=== PATIENT | male | born 1935 | race Caucasian/White ===

== ENCOUNTER 2017-03-23 09:26 | Emergency (ER) | payer OTHER ==
[2017-03-23] MEDS ORDERED: LET GEL TOPICAL 1 EA SYR TP ONE (09:32)
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
[2017-03-23] MEDS ORDERED: TDAP ADULT 0.5 ML INJ (BOOSTRIX) IM ONE (09:37)
[2017-03-23 09:38] VITALS: RESP 16; TEMP 98.1; O2SAT 98
[2017-03-23 10:40] VITALS: BP 159/69; PULSE 65
== END 2017-03-23 10:40 | disposition home or self-care (01) ==
LOC: EDUNIT#
DX: S51.812A Laceration without foreign body of left forearm, initial encounter (principal); S70.01XA Contusion of right hip, initial encounter; V13.0XXA Pedal cycle driver injured in collision with car, pick-up truck or van in nontraffic accident, initial encounter; Y92.410 Unspecified street and highway as the place of occurrence of the external cause; Y99.8 Other external cause status; Y93.55 Activity, bike riding; I10 Essential (primary) hypertension

== ENCOUNTER 2017-03-27 08:48 | Observation (INO) | payer OTHER ==
--- NOTE | 2017-03-27 08:52 | EDPHY ---
HPI/HX/ROS/PE/MDM Narrative: CHIEF COMPLAINT: Bradycardia, nausea, diarrhea HISTORY OF PRESENT ILLNESS: This patient is an 81 year old male arriving via EMS complaining of nausea, diarrhea, and dizziness onset last night. Per EMS report, he was bradycardic in transport with heart rate in the high 20s and low 30s with good blood pressure. EMS reports complete heart block on their EKG. The patient felt well yesterday, and went shopping at [employer] yesterday evening and ate several samples. Later in the evening, he began to feel very nauseous and had multiple episodes of diarrhea throughout the night. He had two episodes of dizziness and weakness associated with a "pressure" sensation from his lower abdomen to his head and some tinnitus. He did have a brief episode of syncope for about 5 seconds, witnessed by his . He did not fall or strike his head. He took his blood pressures, and noted it was 77/33 and called EMS. He did not vomit spontaneously, but did induce vomiting with his finger. He denies any blood in his stool. He does take Diltiazem and Losartan, and states he is diligent with his medications and did not take too much of these medications. No fever, chills, chest pain, shortness of breath, palpitations, urinary complaints. REVIEW OF SYSTEMS: Aside from elements discussed in the HPI, a comprehensive 10-point review of systems was reviewed and is negative. PAST MEDICAL HISTORY: Cardiac stents. 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 VITAL SIGNS: Reviewed by me. HR 30 142/30 GENERAL: Well-developed, well-nourished, alert, conversant. HEENT: Atraumatic. Eyes: No icterus, no injection. Mouth: moist mucous membranes. No erythema or lesions. Neck: supple with no adenopathy. LUNGS: Clear to auscultation bilaterally, no wheezes, rhonchi or rales. CARDIAC: Extreme bradycardia, no rubs, murmurs or gallops. ABDOMEN: Soft, nontender, nondistended, bowel sounds normal. BACK: No CVA tenderness. EXTREMITIES: No trauma. No edema. Range of motion is normal throughout. NEURO: Alert and oriented, grossly nonfocal. SKIN: slightly diaphoretic, , no rash. PSYCHIATRIC: Normal mentation, no agitation. ED Course: 08:50 Met EMS at bedside. EKG shows wide QRS, right bundle branch block, complete heart block. 1mg IV Atropine administered. Pacer pads placed. Plan for I-stat, cardiology consult. Plan for labs including CBC, BMP, Troponin , Lipase. The patient remains bradycardic. 09:31 Consulted with Jennifer Melvin with [facility]. Cardiology will consult. 09:41 Dr. Morales, apprentice lineman third step, at bedside. He accepts admission for this patient. Plans to place pacemaker. Patient taken urgently to lab pack chemist for pacemaker placement. MDM: Critical care time spent by me, Dr. Tellez, exclusively with this patient was 35 minutes, exclusive of PA time and exclusive of procedures. The organ system at risk was cardiac and I gave atropine, placed pacer pads, consulted cardiology , performed EKG interpretation, and facilitated urgent pacemaker placement. Diff dx considered included bradycardia, mobitz type 2 heart block, complete heart block, arrhythmias, drug overdose, medication effects. - Data Points Laboratory Results: Laboratory Results 03/27/17 08:58 03/27/17 08:58 03/27/17 03/27/17 03/27/17 08:58 08:58 08:58 WBC 9.77 10^3/uL H 10^3/uL (3.80-9.50) RBC 4.40 10^6/uL 10^6/uL (4.40-6.38) Hgb 14.4 g/dL g/dL (13.7-17.5) POC Hgb 14.3 gm/dL gm/dL (13.7-17.5) Hct 42.9 % % (40.0-51.0) POC Hct 42 % % (40-51) MCV 97.5 fL fL (81.5-99.8) MCH 32.7 pg pg (27.9-34.1) MCHC 33.6 g/dL g/dL (32.4-36.7) RDW 13.0 % % (11.5-15.2) Plt Count 155 10^3/uL 10^3/uL (150-400) MPV 10.0 fL fL (8.7-11.7) Neut % (Auto) 83.9 % H % (39.3-74.2) Lymph % (Auto) 11.1 % L % (15.0-45.0) Blanco % (Auto) 3.9 % L % (4.5-13.0) Eos % (Auto) 0.4 % L % (0.6-7.6) Baso % (Auto) 0.4 % % (0.3-1.7) Nucleat RBC Rel Count 0.0 % % (0.0-0.2) Absolute Neuts (auto) 8.20 10^3/uL H 10^3/uL (1.70-6.50) Absolute Lymphs (auto) 1.08 10^3/uL 10^3/uL (1.00-3.00) Absolute Monos (auto) 0.38 10^3/uL 10^3/uL (0.30-0.80) Absolute Eos (auto) 0.04 10^3/uL 10^3/uL (0.03-0.40) Absolute Basos (auto) 0.04 10^3/uL 10^3/uL (0.02-0.10) Absolute Nucleated RBC 0.00 10^3/uL 10^3/uL (0-0.01) Immature Gran % 0.3 % % (0.0-1.1) Immature Gran # 0.03 10^3/uL 10^3/uL (0.00-0.10) POC Sodium 139 mEq/L mEq/L (134-144) Sodium 137 mEq/L mEq/L (134-144) POC Potassium 4.1 mEq/L mEq/L (3.3-5.0) Potassium 4.6 mEq/L mEq/L (3.5-5.2) POC Chloride 103 mEq/L mEq/L (97-110) Chloride 101 mEq/L mEq/L (97-110) Carbon Dioxide 22 mEq/l mEq/l (22-31) Anion Gap 14 mEq/L mEq/L (8-16) POC BUN 43 mg/dL H mg/dL (7-23) BUN 48 mg/dL H mg/dL (7-23) Creatinine 1.9 mg/dL H mg/dL (0.7-1.3) POC Creatinine 1.9 mg/dL H mg/dL (0.7-1.3) Estimated GFR 34 Glucose 212 mg/dL H mg/dL (70-100) POC Glucose 216 mg/dL H mg/dL (70-100) Calcium 10.1 mg/dL mg/dL (8.5-10.4) Troponin I < 0.012 ng/mL ng/mL (0.000-0.034) Lipase 143 IU/L IU/L (23-300) Medications Given: Discontinued Medications Atropine Sulfate (Atropine 1 Mg/10 Ml Syringe) 1 mg IVP EDNOW ONE Stop: 03/27/17 08:57 Last Admin: 03/27/17 08:57 Dose: 1 mg Bacitracin (Bacitracin 1000 Ml Irrigation) 50,000 units IRR ONCALL ONE Stop: 03/27/17 10:13 Last Admin: 03/27/17 13:23 Dose: Not Given Diazepam (Valium) 5 mg PO ONCALL ONE Stop: 03/27/17 10:13 Last Admin: 03/27/17 13:28 Dose: Not Given Diphenhydramine HCl (Benadryl) 25 mg PO ONCALL ONE Stop: 03/27/17 10:13 Last Admin: 03/27/17 13:28 Dose: Not Given Sodium Chloride (Ns) 1,000 mls @ 0 mls/hr IV ONCALL ONE PRN Reason: As Directed Stop: 03/27/17 10:13 Last Admin: 03/27/17 13:28 Dose: Not Given Cefazolin Sodium/Dextrose (Ancef 2 Gm (Premix)) 100 mls @ 200 mls/hr IV ONCALL ONE PRN Reason: Protocol Stop: 03/27/17 11:10 Last Admin: 03/27/17 13:23 Dose: Not Given Point of Care Test Results: 03/27/17 08:58 POC Sodium 139 POC Potassium 4.1 POC Chloride 103 POC BUN 43 H POC Creatinine 1.9 H POC Glucose 216 H General Initial Vital Signs: Initial Vital Signs Temperature (C) 37 C 03/27/17 08:48 Heart Rate 30 L 03/27/17 08:48 Respiratory Rate 14 03/27/17 08:48 Blood Pressure 142/40 H 03/27/17 08:48 O2 Sat (%) 98 03/27/17 08:48 O2 Delivery Mode Room Air Allergies/Adverse Reactions: No Known Allergies Allergy (Verified 03/27/17 09:02) Home Medications: Medication Instructions Recorded Aspirin [Aspirin 81mg (*)] 81 mg PO DAILY 03/27/17 Atorvastatin Calcium [Lipitor 10 10 mg PO DAILY 03/27/17 mg (*)] Finasteride [Proscar 5 MG (*)] 5 mg PO Q2D 03/27/17 Losartan/Hydrochlorothiazide 1 each PO DAILY 03/27/17 [Losartan-Hctz 100-25 mg Tab] Tamsulosin HCl [Flomax 0.4 MG (*)] 0.8 mg PO HS 03/27/17 Zolpidem Tartrate [Ambien 10 mg] 10 mg PO HS PRN 03/27/17 Departure - Departure Disposition: [facility] Inpatient Acute Clinical Impression: Bradycardia, Complete heart block by electrocardiogram Condition: Serious Report Scribed for: Eliza Tellez Report Scribed by: Grecia Ivy Date of Report: 03/27/17 Time of Report: 10:25 Physician Review and Approval Statement: Portions of this note were transcribed by a medical affairs manager. I personally performed a history, physical exam, medical decision making, and confirmed accuracy of information the transcribed note.
[2017-03-27] MEDS ORDERED: ATROPINE SULFATE 1 MG/10 ML SYR ONE ×2 (08:55→11:19)
[2017-03-27] MEDS ORDERED: ATROPINE SULFATE 1 MG/10 ML SYR IVP ONE (08:56)
[2017-03-27 09:08] LABS: % IMMATURE GRANULYOCYTES 0.3 % (0.0-1.1); ABSOLUTE IMMATURE GRANULOCYTES 0.03 10^3/uL (0.00-0.10); ADD DIFF? NO; ADD MORPH? NO; ADD SCAN? NO; ATYPICAL LYMPHOCYTE FLAG 0 (0-99); FRAGMENT RBC FLAG 0 (0-99); HEMATOCRIT 42.9 % (40.0-51.0); HEMOGLOBIN 14.4 g/dL (13.7-17.5); LEFT SHIFT FLG 0 (0-99); LIPEMIA HEMOLYSIS FLAG 80 (0-99); MEAN CELL HEMOGLOBIN 32.7 pg (27.9-34.1); MEAN CELL HEMOGLOBIN CONCENTR. 33.6 g/dL (32.4-36.7); MEAN CELL VOLUME 97.5 fL (81.5-99.8); PLATELET CLUMPS FLAG 0 (0-99); PLATELET COUNT 155 10^3/uL (150-400)
--- NOTE | 2017-03-27 09:09 | CPEKG ---
Heart Rate: 30 RR Interval: 2000 P-R Interval: 361 QRSD Interval: 142 QT Interval: 576 QTC Interval: 407 P [place]: 27 QRS [place]: -69 T Wave [place]: -34 EKG Severity - ABNORMAL ECG - EKG Impression: complete heart block EKG Impression: SINUS BRADYCARDIA EKG Impression: FIRST DEGREE AV BLOCK EKG Impression: RIGHT BUNDLE BRANCH BLOCK EKG Impression: PROBABLE ANTEROSEPTAL INFARCT, OLD Electronically Signed By: Eliza Tellez 27-Mar-2017 15:50:18
[2017-03-27 09:14] LABS: ANION GAP 14 mEq/L (8-16); CALCIUM 10.1 mg/dL (8.5-10.4); CARBON DIOXIDE 22 mEq/l (22-31); CHLORIDE 101 mEq/L (97-110); CREATININE 1.9 mg/dL (0.7-1.3); GLOMERULAR FILTRATION RATE 34; GLUCOSE 212 mg/dL (70-100); POTASSIUM 4.6 mEq/L (3.5-5.2); SODIUM 137 mEq/L (134-144)
[2017-03-27 09:25] LABS: TROPONIN I < 0.012 ng/mL (0.000-0.034)
[2017-03-27] MEDS ORDERED: NS 1,000 ML IV ONE (10:12)
[2017-03-27] MEDS ORDERED: BACITRACIN IRRIGATION/NS 50,000 UNITS/1,000 ML BTL IRR ONE (10:12)
[2017-03-27] MEDS ORDERED: DIAZEPAM 5 MG TAB PO ONE (10:12)
[2017-03-27] MEDS ORDERED: diphenhydrAMINE 25 MG CAP PO ONE (10:12)
[2017-03-27 10:25] LABS: MAGNESIUM 2.6 mg/dL (1.6-2.3)
[2017-03-27] MEDS ORDERED: ceFAZolin 2 GM/DEXTROSE 100 ML IV ONE (10:41)
[2017-03-27] MEDS ORDERED: LIDOCAINE 1% 300 MG/30 ML SDV ONE ×2 (11:13→12:17)
[2017-03-27] MEDS ORDERED: EPINEPHrine 1 MG/10 ML SYR IVP ONE (11:19)
[2017-03-27] MEDS ORDERED: MIDAZOLAM 2 MG/2 ML VIAL ONE (12:17)
[2017-03-27] MEDS ORDERED: LIDO/EPI 1% **for epidural** 30 ML SDV ONE (12:17)
[2017-03-27] MEDS ORDERED: fentaNYL 100 MCG/2 ML INJ ONE (12:17)
[2017-03-27] MEDS ORDERED: IOPAMIDOL (ISOVUE-300) 150 ML BTL ONE (12:18)
[2017-03-27] MEDS ORDERED: BUPIVACAINE 0.5% 30 ML SDV ONE (12:18)
--- NOTE | 2017-03-27 12:32 | PDPROPOC ---
Sedation Plan of Care Sedation Plan of Care: vital signs stable, mental status noted, patient educated of risks, benefits, alternatives, patient can tolerate sedation ASA Classification: ASA 1 Planned drugs: fentanyl, midazolam Mallampati Score: Class 1 Mallampati Reference Image: Patient passed 3-3-2 rule?: Yes
--- NOTE | 2017-03-27 12:33 | PDGENHP ---
History & Physical Chief Complaint: CHB, syncope. History of Present Illness: Presents with CHB and syncope. Pertinent Past, Social, Family History: See dictation. Relevant Physical Exam: Bradycardia without murmur. Clear lungs
--- NOTE | 2017-03-27 13:00 | CPIP ---
[f rep st] INVASIVE CARDIAC PROCEDURE DATE OF PROCEDURE: 03/27/2017 INDICATIONS: Complete heart block. PROCEDURE: Implantation of a permanent pacemaker. TECHNIQUE: Following informed consent, the patient was brought emergently to the cardiac catheteriza tion laboratory, having presented with complete heart block to the emergency department. The right g roin and left chest were prepped and draped in the usual sterile fashion. Ancef was administered saniya or to the procedure. 2% lidocaine was infiltrated into the right groin region. This allowed placeme nt of a 6-Stateless long sheath. A balloon-tipped temporary transvenous pacemaker was then passed in th e right ventricular apex. We documented adequate capture. This was secured in place with Tegaderm. At this point, 2% lidocaine was infiltrated in the region below the left clavicle. A 3 cm incision was made using the #10 blade. This was carried down to the prepectoral fascia. The pocket was fashi oned bluntly, and an antibiotic-soaked sponge placed. Using the modified Seldinger technique and 2 s eparate sticks, access was gained to the axillary vein at the level of the first rib. Two individual 0.035 J-wires were placed. Using the first of these J-wires, a 6-Stateless SafeSheath was placed. Thi s allowed us to position the right ventricular lead right into the right ventricular apex. The sheat h was torn away. The lead was screwed into place and tested with adequate capture and sensing. The lead was then secured to the pacemaker pocket floor using 0 Ethibond. Using the remaining wire, a se cond 6-Stateless SafeSheath was placed. The right atrial lead was then passed into the right atrium and positioned anterolaterally in the right atrium. The lead was then screwed into place. There was ex cellent sensing and reasonable capture with an excellent injury current. As a result, the sheath was torn away, and the lead secured in place using 0 Ethibond. The antibiotic-soaked sponge was then re moved from the pocket. The pocket was irrigated with antibiotic-containing solution, and D-Stat was applied. The device was brought to the field. Both leads were identified by serial number and affix ed to the header according to setup operator guidelines. The device and the redundant portions of both leads were then placed in the pocket. The pocket was then closed in 2 layers, initially with 2-0 Vi cryl interrupted sutures and finally running 4-0 subcuticular sutures for the skin. Steri-Strips and a dry dressing were applied. At this point, under fluoroscopy, the temporary transvenous pacemaker was withdrawn. The device was then tested with stable capture and sensing. COMPLICATIONS: None. DEVICE INFORMATION: The pacemaker is a [employer] MRI, reference #VJ6054, serial #[id number]. Atrial lead: [employer] Tendril [id number], 46 cm lead, serial #[id number]. Ventricular lead: [employer] Tend[employer] SDX, reference #2088TC, 52 cm lead, serial #[id number]. Sensed P waves were 4.2 mV with a capture in the atrium, 1.7 V at 0.5 msec. Lead impedance 518 ohms. Sensed R waves: There were no [place] sensed R waves. Sensed paced R waves were 8 mV with a captur e of 0.3 V at 0.5 msec with a lead impedance of 541 ohms. There was no phrenic nerve stimulation. DISPOSITION: The patient will be transferred to the [facility] and recovered. He will be transferred to [facility]. He will be monitored overnight and discharged home tomorrow. /[id number]/MODL
--- NOTE | 2017-03-27 13:14 | CPEKG ---
Heart Rate: 82 RR Interval: 732 P-R Interval: 197 QRSD Interval: 154 QT Interval: 444 QTC Interval: 519 P [place]: 88 QRS [place]: -79 T Wave [place]: 90 EKG Severity - ABNORMAL ECG - EKG Impression: ATRIAL-SENSED VENTRICULAR-PACED RHYTHM Electronically Signed By: Eliza Tellez 27-Mar-2017 15:51:23
--- NOTE | 2017-03-27 13:15 | GHP ---
[f rep st] HISTORY AND PHYSICAL DATE OF ADMISSION: 03/27/2017 INDICATION: Complete heart block. HISTORY OF PRESENT ILLNESS: The patient is 81 years old, typically followed through [facility]. He has known coronary artery disease, with previous stents placed in 2 separate arteries. He sta roxana he has 4 stents total, the last 1 being about 8 years ago. He has no history of myocardial infar ction or congestive heart failure. Additionally, he states that he has a history of PVCs, hypertensi on, chronic renal insufficiency and type 2 diabetes. He was doing well up until about 1 o'clock this morning. At that point, he experienced diarrhea throughout the evening. He thought this was due to food poisoning. He had several episodes of lightheadedness. Earlier this morning, he took his bloo d pressure and found it to be in the 70s systolic, associated with heart rates in the 30s. As a resu lt, EMS was activated. Apparently, he suffered a syncopal event following the EMS arrival. He appar ently lost consciousness for about 5 seconds. On arrival to the emergency department, he was noted t o be in complete heart block. His ventricular escape rate was 28 to 30 beats per minute. Supine, hi s blood pressure was in the 120s to 140s systolic. He states he is not experiencing any chest pain. He has not changed any of his medications recently. The only AV agustín agent he states that he is ta sanjeev is diltiazem extended release 120 mg daily. He is not on any anticoagulants. PAST MEDICAL HISTORY: 1. Chronic renal insufficiency. 2. Hypertension. 3. PVCs. 4. Coronary artery disease. 5. Hyperlipidemia. 6. Type 2 diabetes mellitus. 7. History of skin cancer. 8. Gout. 9. BPH. HOME MEDICATIONS: He provided a printed list of his home medications. These include aspirin, Cozaar , diltiazem, atorvastatin, tamsulosin and finasteride. ALLERGIES: None. SOCIAL HISTORY: He is , and accompanied by his . 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 He lives independently. He is a nonsmoker. Uses no alcohol or drugs. Likes to exercise at least 6 days a week, generally by riding his bicycle or doing a fast walk. SURGICAL HISTORY: Previous cholecystectomy. FAMILY HISTORY: At this point is noncontributory. REVIEW OF SYSTEMS: A full 10-point review of systems was performed and is otherwise negative. DISCHARGE PHYSICAL EXAMINATION: VITAL SIGNS: Blood pressure 138/49 with a mean of 78, heart rate of 30, oxygen saturation 98% on room air. GENERAL: A healthy white male, in no acute distress. HEENT : No jugular venous distention. Positive nichols A waves, 2+ carotids, with no bruits. RESPIRATORY: Speaks in full sentences using no accessory muscles. On auscultation, he has clear lung peterson charlene aterally. CARDIAC: Bradycardia. He has 1/6 systolic ejection murmur left sternal border. No 3rd o r 4th heart sounds. ABDOMEN: Soft, nontender. Normoactive bowel sounds. Nonpalpable aorta. EXTRE MITIES: Without edema, warm and well perfused. VASCULATURE: He has 2+ radial and femoral arterial pulses. DATABASE: His electrocardiogram demonstrates a background rhythm of sinus rhythm with associated com plete heart block and a ventricular escape with a right bundle morphology. IMPRESSION: The patient is 81 years old and presents with multiple episodes of presyncope associated with 1 episode of witnessed syncope. This comes on the heels of a recent diarrheal illness. Despit e this, his labs are noted to be normal. Specifically, his TSH does not indicate significant hypothy roidism, and he does not have any marked perturbations of his potassium or magnesium. His creatinine is elevated at 1.9. He is on a low dose of diltiazem. I do not think that this current diltiazem d ose is contributing substantially to his clinical presentation. Specifically, he has been on this az dication for many years now, the medication is renally eliminated and he is on a low dose. RECOMMENDATIONS: At this point, I think the patient would be best served by a permanent pacemaker [facility]. The risks, benefits, and alternatives were discussed with him today. He is in agreement . Consent was obtained. We will plan to proceed later this morning. /[id number]/MODL
[2017-03-27] MEDS ORDERED: NON-FORMULARY NEW DRUG (Zolpidem Tartrate [Ambien 10 Mg] 10 MG) PO PRN (15:44)
[2017-03-27] MEDS ORDERED: ONDANSETRON DISINTEGRATING 4 MG TAB PO PRN (15:46)
[2017-03-27] MEDS ORDERED: ONDANSETRON 4 MG/2 ML VIAL IVP PRN (15:46)
[2017-03-27] MEDS ORDERED: ACETAMINOPHEN 325 MG TAB PO PRN (15:46)
[2017-03-27] MEDS ORDERED: ZOLPIDEM TARTRATE 5 MG TAB PO PRN (15:53)
[2017-03-27] MEDS ORDERED: CEPACOL LOZENGE PO PRN (16:17)
[2017-03-27] MEDS ORDERED: TAMSULOSIN HCL 0.4 MG CAP PO SCH (21:00)
[2017-03-28 05:01] LABS: % IMMATURE GRANULYOCYTES 0.2 % (0.0-1.1); ABSOLUTE IMMATURE GRANULOCYTES 0.02 10^3/uL (0.00-0.10); ADD DIFF? NO; ADD MORPH? NO; ADD SCAN? NO; ATYPICAL LYMPHOCYTE FLAG 0 (0-99); FRAGMENT RBC FLAG 20 (0-99); HEMATOCRIT 35.4 % (40.0-51.0); HEMOGLOBIN 12.2 g/dL (13.7-17.5); LEFT SHIFT FLG 0 (0-99); LIPEMIA HEMOLYSIS FLAG 90 (0-99); MEAN CELL HEMOGLOBIN 33.1 pg (27.9-34.1); MEAN CELL HEMOGLOBIN CONCENTR. 34.5 g/dL (32.4-36.7); MEAN CELL VOLUME 95.9 fL (81.5-99.8); MEAN PLATELET VOLUME 9.8 fL (8.7-11.7); PLATELET CLUMPS FLAG 0 (0-99); PLATELET COUNT 162 10^3/uL (150-400); RED BLOOD CELL COUNT 3.69 10^6/uL (4.40-6.38); RED CELL DISTRIBUTION WIDTH 13.2 % (11.5-15.2)
[2017-03-28 05:17] LABS: ANION GAP 10 mEq/L (8-16); CALCIUM 8.8 mg/dL (8.5-10.4); CARBON DIOXIDE 22 mEq/l (22-31); CHLORIDE 106 mEq/L (97-110); CREATININE 1.5 mg/dL (0.7-1.3); GLOMERULAR FILTRATION RATE 45; GLUCOSE 93 mg/dL (70-100); SODIUM 138 mEq/L (134-144)
[2017-03-28] MEDS ORDERED: ASPIRIN 81 MG CHEWABLE TAB PO SCH (09:00)
[2017-03-28] MEDS ORDERED: FINASTERIDE 5 MG TAB PO SCH (09:00)
[2017-03-28] MEDS ORDERED: LOSARTAN/HCTZ 50/12.5 1 TAB PO SCH (09:00)
[2017-03-28] MEDS ORDERED: NON-FORMULARY NEW DRUG (Losartan/Hydrochlorothiazide [Losartan-Hctz 100-25 Mg Tab] 1 EACH) PO SCH (09:00)
[2017-03-28] MEDS ORDERED: ATORVASTATIN CALCIUM 10 MG TAB PO SCH (09:00)
[2017-03-28 09:16] VITALS: RESP 18
--- NOTE | 2017-03-28 10:15 | WOCRNPDOC ---
WOCRN Advanced Assessment Note - Skin Integrity Problem, Advanced Assess Head Abrasion Dressing Type: Gauze Dressing Description: Intact Exudate Amount: Scant Exudate Characteristic(s): Serous Integumentary Issue Intervention: Dressing Changed, Dressing Initialed & Dated Janeth Wound Tissue: Macerated, Raw Janeth Wound Swelling: None Wound Bed Color: Red Wound Bed Constitution: Granulation Tissue Wound Edges: Irregular Site Odor: None Site Measurement - Head-to-Toe Length X Width X Depth (cm): [id number] Skin Integrity Problem Comment: Shallow abrasion noted to top of patient's head , which he reports is the result of repeated injuries, most recently from hitting his head on a tree branch. Presently the wound is shallow w/ granulation tissue throughout. Wound margins are friable and macerated. Advised discontinuing vaseline, which is what he had been applying to site. Covered wound w/ protective foam dressing, and instructed his to keep it covered and change every 3 days.
[2017-03-28 11:34] VITALS: BP 137/69; PULSE 71; TEMP 98.2; O2SAT 94
--- NOTE | 2017-03-28 13:33 | GDS ---
[f rep st] DISCHARGE SUMMARY DISCHARGE DIAGNOSES: 1. Complete heart block, status post dual-chamber [employer] pacemaker. 2. History of coronary artery disease with prior stenting. 3. History of premature ventricular contractions. 4. Hypertension. 5. Chronic renal insufficiency. 6. Hyperlipidemia. 7. Diabetes type 2. HOSPITAL COURSE: For detailed H and P, please see prior dictation. Briefly, the patient is an 81-year-old male, who presented to the hospital with syncope and complete heart block. The day prior to admission, he had GI distress and diarrhea. The day of his hospitalization, he noted multiple episodes of lightheadedness, and presyncope. He checked his blood pressure and found the systolic pressures in the 70s, and heart rate of 30 beats per minute. EMS was activated, and just after they arrived, he had a true syncopal event. He was found to be in complete heart block with ventricular escape rate of 28 to 30 beats per minute. His blood pressure improved when he was supine into the 120s to 140s. His medical regimen was reviewed, and he was noted to be on diltiazem 120 mg daily, this was a low dose, and unlikely to cause complete heart block, and therefore, the decision was made to proceed with a pacemaker. He had a [employer] dual-chamber pacemaker placed on 03/27/[address] Shaquille Morales. The procedure was uncomplicated. The following morning, his chest x-ray was negative for pneumothorax, and his pacer interrogation showed his device to be working appropriately. He did suffer a wound to the head, as well as to the arm , and therefore, wound care was asked to see the patient. He does have history of chronic renal insufficiency and his creatinine on admission was 1.9. It is currently 1.5. His troponin was negative x1. His TSH was within normal limits at 2.08. PHYSICAL EXAMINATION: GENERAL: Patient appears in no acute distress. VITAL SIGNS: Blood pressure 137/69, heart rate 71, oxygen saturation of 94% on room air, afebrile. LUNGS: Clear to auscultation. No wheezes, rhonchi, or crackles auscultated. CARDIAC: Regular rate and rhythm without any significant murmurs, rubs or gallops appreciated. CHEST WALL: Pacer site is clean, intact, without any evidence of infection or hematoma. Right groin where temporary pacer was placed is clean, intact, without any evidence of hematoma or infection. DISCHARGE MEDICATIONS: He will continue Flomax 0.8 mg at bedtime, Proscar 5 mg every other day, Lipitor 10 mg daily, Ambien 10 mg at bedtime p.r.n., losartan/ hydrochlorothiazide 100/25 mg daily, aspirin 81 mg daily. PLAN: The patient is currently stable and ready for discharge home. He has been given groin and pacer precautions. He will follow up in our office on at 10 o'clock for pacer interrogation and wound check. He is also scheduled for a follow up with Dr. Morales on 05/14 at 10 o'clock in our [place] office. Greater than 30 minutes was spent coordinating the patient's care and plan today. /[id number]/MODL MTDD
== END 2017-03-28 13:34 | disposition home or self-care (01) ==
LOC: EDUNIT# → INTOOBSV 10:22 → F2W 14:25
PROVIDERS: ADMIT Internal Medicine Cardiovascular Disease; ATTEND Internal Medicine Cardiovascular Disease
PROC: 02HK3JZ Insertion of Pacemaker Lead into Right Ventricle, Percutaneous Approach (ICD-10-PCS; principal; 2017-03-27)
PROC: 02H63JZ Insertion of Pacemaker Lead into Right Atrium, Percutaneous Approach (ICD-10-PCS; principal; 2017-03-27)
PROC: 0JH606Z Insertion of Pacemaker, Dual Chamber into Chest Subcutaneous Tissue and Fascia, Open Approach (ICD-10-PCS; principal; 2017-03-27)
DX: I44.2 Atrioventricular block, complete (principal); S00.01XA Abrasion of scalp, initial encounter; W22.09XA Striking against other stationary object, initial encounter; I25.10 Atherosclerotic heart disease of native coronary artery without angina pectoris; I12.9 Hypertensive chronic kidney disease with stage 1 through stage 4 chronic kidney disease, or unspecified chronic kidney disease; N18.9 Chronic kidney disease, unspecified; E11.22 Type 2 diabetes mellitus with diabetic chronic kidney disease; E78.5 Hyperlipidemia, unspecified; Z95.5 Presence of coronary angioplasty implant and graft; Z85.820 Personal history of malignant melanoma of skin
CPT/HCPCS: 33208; 71010; 71020; 92953; 93005; 96374; 99291; A4649; C1785; C1898; G0378; J0461; J0690; J1644; J2250; J3010; Q9967; 82947-QW